=== PATIENT | female | born 2000 | race Caucasian/White ===

== ENCOUNTER 2020-09-29 21:15 | Observation (INO) ==
[2020-09-30 00:09] LABS: ABS Lymphocytes 1.6 10^3/ul (1.0-4.8); ABS Monocytes 0.8 10^3/ul (0-0.8); ABS Neutrophils 6.8 10^3/ul (1.5-7.7); Eosinophil % 0.3 %; Hematocrit 43 % (35-47); Hemoglobin 14.6 g/dL (12.0-16.0); Lymphocyte % 17.2 %; Mean Corpuscular HGB Conc 34 g/dL (31-36); Mean Corpuscular Hemoglobin 30 pg (27-31); Mean Corpuscular Volume 86 fL (80-97); Mean Platelet Volume 7.5 fL (7.4-10.4); Nucleated Red Blood Cells % 0.1; Platelet Count 317 10^3/uL (150-450); Red Blood Count 4.96 10^6 /uL (3.70-4.87); Red Cell Distribution Width 13 % (10-15); White Blood Count 9.2 10^3/uL (3.5-10.8)
[2020-09-30 00:39] LABS: Albumin 4.5 g/dL (3.2-5.2); Albumin/Globulin Ratio 1.4 (1-3); C Reactive Protein 50.99 mg/L (<8.01); Calcium 9.7 mg/dL (8.6-10.3); EGFR African American 96.9 (>60); EGFR Non-African American 80.1 (>60); Globulin 3.3 g/dL (2-4); Potassium 3.5 mmol/L (3.5-5.0); Total Bilirubin 0.8 mg/dL (0.2-1.0); Total Protein 7.8 g/dL (6.4-8.9)
[2020-09-30 00:45] LABS: HCG Pregnancy 1.64 mIU/mL
[2020-09-30] MEDS ORDERED: Iohexol 300 (CONTRAST) 10 ML SDV IV ONE (00:55)
[2020-09-30 01:04] LABS: Urine Appearance Clear; Urine Bilirubin Negative (Negative); Urine Blood Negative (Negative); Urine Color Yellow; Urine Glucose Negative (Negative); Urine Ketones Negative (Negative); Urine Nitrite Negative (Negative); Urine Protein Negative (Negative); Urine Specific Gravity 1.006 (1.002-1.030); Urine Urobilinogen Negative (Negative)
[2020-09-30] MEDS ORDERED: Piperacillin/Tazobac ADVAN 3.375 GM in NS 0.9% 100 ml BAG 100 ML IV ONE ×2 (02:37→02:44)
[2020-09-30] MEDS ORDERED: Ondansetron 4 mg VIAL 2 MG/ML 2 ml VIAL IV PRN ×2 (02:44→08:58)
[2020-09-30] MEDS ORDERED: Zosyn per Pharmacy NOTE FOLLOW UP SCH (03:00)
[2020-09-30] MEDS: NS 0.9% 1000 ml BAG 1,000 ML IV SCH ×2 (03:08→05:58)
[2020-09-30] MEDS ORDERED: ZOSYN 3.375 GM Q8H per EXTENDED INFUSION IV SCH (07:30)
[2020-09-30] MEDS ORDERED: Buffered Lidocaine 1% SYRIN 1 ml INTRADERM ONE (08:48)
[2020-09-30] MEDS ORDERED: DiMENhydriNATE IV 50 mg/ml 1 ml VIAL IV PUSH ONE (08:48)
[2020-09-30] MEDS ORDERED: Sodium Citrate/Citric Acid LIQ 15 ML UDC PO ONE (08:48)
[2020-09-30] MEDS ORDERED: Metoclopramide 5 MG/ML VIAL (10 mg) IV PRN (08:58)
[2020-09-30] MEDS ORDERED: HYDROcodone/ACETAMIN 5/325 mg TAB PO PRN (08:58)
[2020-09-30] MEDS ORDERED: Naloxone 0.4 mg VIAL 0.4 mg/ml 1 ml VIAL IV PRN (08:58)
[2020-09-30] MEDS ORDERED: Lactated Ringers 1000 ml BAG 1,000 ML IV SCH (09:00)
[2020-09-30] MEDS ORDERED: DiMENhydriNATE IV 50 mg/ml 1 ml VIAL ONE (09:25)
[2020-09-30] MEDS ORDERED: Sodium Citrate/Citric Acid LIQ 15 ML UDC ONE (09:25)
[2020-09-30] MEDS ORDERED: Midazolam 2 mg/2 ml VIAL 1 mg/ml 2 ml VIAL (2 mg) ONE (09:30)
[2020-09-30] MEDS ORDERED: fentaNYL 100 mcg/2 ml 50 MCG/ML VIAL ONE ×3 (09:30→11:24)
[2020-09-30] MEDS ORDERED: Lidocaine 2% PF 5 ML VIAL ONE (09:30)
[2020-09-30] MEDS ORDERED: Propofol 10 MG/ML 20 ML BTL ONE ×2 (09:30→10:15)
[2020-09-30] MEDS ORDERED: Rocuronium 50 mg VIAL 10 mg/ml 5 ml VIAL (50 mg) ONE (10:04)
[2020-09-30] MEDS ORDERED: Acetaminophen IV 1 GM/100ML 100 ML ONE (10:08)
[2020-09-30] MEDS ORDERED: Dexamethasone IV 4 MG/ML VIAL 1 ml VIAL ONE (10:15)
[2020-09-30] MEDS ORDERED: HYDROcodone/ACETAMIN 5/325 mg TAB ONE (11:24)
[2020-09-30] MEDS: fentaNYL 100 mcg/2 ml 50 MCG/ML VIAL IV PRN ×4 (11:26→13:31)
[2020-09-30 13:59] LABS: Chlamydia trachomatis NAA Negative (Negative); Neisseria gonorrhoeae (GC) NAA Negative (Negative)
[2020-09-30 15:22] VITALS: BP 139/91
== END 2020-09-30 14:45 | disposition home or self-care (01) ==
LOC: SSU 21:15 → ED 21:15 → SSU 09-30 05:31
PROVIDERS: ADMIT Surgery Surgical Critical Care; ATTEND Surgery